=== PATIENT | male | born 1995 | race Two or more races ===

== ENCOUNTER 2021-04-05 20:40 | Emergency (ER) | payer MEDICAID, OTHER ==
[~2021-04-05] VITALS: Ht 177.8 cm; Wt 127.5 kg
[2021-04-06 01:15] VITALS: BP 119/81
== END 2021-04-06 01:15 | disposition home or self-care (01) ==
LOC: ER 20:43
DX: U07.1 COVID-19 (principal)
CPT/HCPCS: 36415; 71045; 87426

== ENCOUNTER 2021-07-16 06:34 | Emergency (ER) | payer MEDICAID ==
[~2021-07-16] VITALS: Ht 177.8 cm; Wt 149.7 kg
[2021-07-16 06:34] VITALS: BP 135/87
[2021-07-16] MEDS ORDERED: cefTRIAXone SOD 1,000 MG VL IM ONE (07:45)
[2021-07-16] MEDS ORDERED: ACETAMINOPHEN 500 MG TAB PO ONE (07:45)
[2021-07-16] MEDS ORDERED: IBUP800T27 PO (08:13)
[2021-07-16] MEDS ORDERED: AZIT500T66 PO (08:13)
== END 2021-07-16 08:22 | disposition home or self-care (01) ==
LOC: ER 06:34
DX: R51.9 Headache, unspecified (principal); J03.90 Acute tonsillitis, unspecified
CPT/HCPCS: 70450; 96372; 99284; J0696

== ENCOUNTER → 2021-08-29 | Outpatient (CLI) | payer MEDICAID ==
[~2021-08-29] MED LIST: AZIT500T66 PO; IBUP800T27 PO
[2021-08-29 16:32] LABS: Cholesterol 250 mg/dL (< 200); HDL Cholesterol 32 mg/dL (40-59); Triglycerides 924 mg/dL (< 150)
== END | disposition home or self-care (01) ==
LOC: LAB 15:39
PROVIDERS: ATTEND Internal Medicine
DX: R73.03 Prediabetes (principal); E78.5 Hyperlipidemia, unspecified
CPT/HCPCS: 36415; 80061; 82043; 83036

== ENCOUNTER → 2021-11-01 | Outpatient (CLI) | payer MEDICAID ==
[2021-11-01 15:30] LABS: Triglycerides 339 mg/dL (< 150)
[2021-11-01 15:33] LABS: Cholesterol 197 mg/dL (< 200); HDL Cholesterol 41 mg/dL (40-59); LDL Cholesterol 110 mg/dL (< 100)
== END | disposition home or self-care (01) ==
LOC: LAB 14:43
PROVIDERS: ATTEND Internal Medicine
DX: E78.5 Hyperlipidemia, unspecified (principal)
CPT/HCPCS: 36415; 80061

== ENCOUNTER 2022-03-14 17:20 | Emergency (ER) | payer MEDICAID ==
[~2022-03-14] VITALS: Ht 177.8 cm; Wt 150.0 kg
[2022-03-14 17:49] VITALS: BP 128/82
[2022-03-14] MEDS ORDERED: levoFLOXacin 500 MG TAB PO ONE (18:00)
[2022-03-14] MEDS ORDERED: CEPH-510 PO (19:45)
== END 2022-03-14 20:38 | disposition home or self-care (01) ==
LOC: ER 17:20
DX: L02.31 Cutaneous abscess of buttock (principal); E78.5 Hyperlipidemia, unspecified; Z98.890 Other specified postprocedural states; Z86.39 Personal history of other endocrine, nutritional and metabolic disease
CPT/HCPCS: 74176

== ENCOUNTER → 2022-05-31 | Outpatient (CLI) | payer MEDICAID ==
[~2022-05-31] MED LIST changes: +CEPH-510 PO
[2022-05-31 11:14] LABS: Cholesterol 294 mg/dL (< 200); HDL Cholesterol 33 mg/dL (40-59); LDL Cholesterol 74 mg/dL (< 100)
[2022-05-31 11:35] LABS: Triglycerides 1370 mg/dL (< 150)
== END | disposition home or self-care (01) ==
LOC: LAB 09:27
PROVIDERS: ATTEND Internal Medicine
DX: E78.5 Hyperlipidemia, unspecified (principal); R73.03 Prediabetes
CPT/HCPCS: 36415; 80061; 83036

== ENCOUNTER → 2022-09-07 | Outpatient (CLI) | payer MEDICARE, MEDICAID ==
[~2022-09-07] MED LIST changes: +IBUP-1456 PO; -IBUP800T27 PO
[2022-09-07 17:03] LABS: Cholesterol 265 mg/dL (< 200)
[2022-09-07 17:14] LABS: HDL Cholesterol 25 mg/dL (40-59); Triglycerides 1436 mg/dL (< 150)
== END | disposition home or self-care (01) ==
LOC: LAB 16:11
PROVIDERS: ATTEND Internal Medicine
DX: E78.5 Hyperlipidemia, unspecified (principal); R73.03 Prediabetes
CPT/HCPCS: 36415; 80061; 82043; 83036

== ENCOUNTER → 2023-02-12 | Outpatient (CLI) | payer MEDICARE, MEDICAID ==
[2023-02-12 13:35] LABS: Albumin 5.1 g/dL (3.2-4.8); Alkaline Phosphatase 82 U/L (46-116); Anion Gap 16 (5-15); BUN/Creatinine Ratio 12.5 (10.0-20.0); Bilirubin, Total 0.9 mg/dL (0.2-1.0); Blood Urea Nitrogen 11 mg/dL (9-23); Calcium 9.6 mg/dL (8.5-10.1); Carbon Dioxide 21 mmol/L (20-30); Chloride 100 mmol/L (98-107); Cholesterol 264 mg/dL (< 200); Glucose 115 mg/dL (74-106); HDL Cholesterol 27 mg/dL (40-59); LDL Cholesterol 53 mg/dL (< 100); Potassium 4.1 mmol/L (3.5-5.1); Sodium 137 mmol/L (136-145); Total Protein 8.5 g/dL (5.7-8.2)
[2023-02-12 15:32] LABS: Alanine Aminotransferase 43 U/L (7-40); Aspartate Aminotransferase 33 U/L (13-40)
[2023-02-12 15:44] LABS: Triglycerides 1660 mg/dL (< 150)
== END | disposition home or self-care (01) ==
LOC: LAB 11:19
PROVIDERS: ATTEND Internal Medicine
DX: E78.5 Hyperlipidemia, unspecified (principal); R73.03 Prediabetes
CPT/HCPCS: 36415; 80053; 80061; 83036

== ENCOUNTER → 2024-01-17 | Outpatient (CLI) | payer MEDICAID ==
[2024-01-17 13:20] LABS: Triglycerides 851 mg/dL (< 150)
[2024-01-17 13:22] LABS: HDL Cholesterol 34 mg/dL (40-59)
[2024-01-17 13:23] LABS: Cholesterol 268 mg/dL (< 200)
== END | disposition home or self-care (01) ==
LOC: LAB 12:05
PROVIDERS: ATTEND Internal Medicine
DX: R73.03 Prediabetes (principal); E78.5 Hyperlipidemia, unspecified
CPT/HCPCS: 36415; 80061; 83036

== ENCOUNTER 2024-12-28 22:21 | Emergency (ER) | payer MEDICAID ==
[~2024-12-28] VITALS: Ht 177.8 cm; Wt 147.6 kg
[2024-12-28 22:39] VITALS: BP 133/90; PULSE 79; RESP 18; TEMP 98.2; O2SAT 96
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
== END 2024-12-29 01:35 | disposition home or self-care (01) ==
LOC: ER 22:21
DX: S13.4XXA Sprain of ligaments of cervical spine, initial encounter (principal); E11.9 Type 2 diabetes mellitus without complications; E78.5 Hyperlipidemia, unspecified; E66.01 Morbid (severe) obesity due to excess calories; Z86.73 Personal history of transient ischemic attack (TIA), and cerebral infarction without residual deficits; Z79.899 Other long term (current) drug therapy; Z68.42 Body mass index [BMI] 45.0-49.9, adult; V89.2XXA Person injured in unspecified motor-vehicle accident, traffic, initial encounter; Y93.89 Activity, other specified; Y92.488 Other paved roadways as the place of occurrence of the external cause; Y99.8 Other external cause status
CPT/HCPCS: 72040